=== PATIENT | female | born 1955 | race Caucasian/White ===

== ENCOUNTER 2023-05-17 11:30 | Emergency (ER) | payer MEDICARE, SELFPAY ==
[2023-05-17 11:34] VITALS: BP 175/103; PULSE 76; RESP 18; TEMP 36.7; O2SAT 98; BMI 31.1
--- NOTE | 2023-05-17 12:00 | ED.FEMALEGU1 ---
HPI - Female Genitourinary General Chief complaint: Urogenital-Female Stated complaint: BACK/PELVIC PAIN Time Seen by Provider: 05/17/23 11:32 Source: patient Mode of arrival: walk-in Limitations: no limitations History of Present Illness HPI Narrative: 67-year-old female presents to Emergency Department for chief complaint of a bulge coming out of her vagina. She believes it's her cervix. She has an appointment with a auto heater mechanic in three weeks. She's had a little bit of bleeding intermittently. No fever or vomiting. She's had this problem for about a month. Related Data Allergies Allergy/AdvReac Type Severity Reaction Status Date / Time amoxicillin [From Augmentin] Allergy Unknown Verified 05/17/23 11:34 beclomethasone Allergy Unknown Verified 05/17/23 11:34 [From Vancenase] clavulanic acid Allergy Unknown Verified 05/17/23 11:34 [From Augmentin] codeine Allergy Unknown Verified 05/17/23 11:34 Review of Systems ROS Narrative A ten point review of systems is negative except as noted above. Exam Narrative Exam Narrative: Nurses note and vital signs reviewed and patient is not hypoxic. General: The patient appears well and in no apparent distress. Patient is resting comfortably on cart. Skin: Warm, dry, no pallor noted. There is no rash noted. Head: Normocephalic, atraumatic Eye: Normal conjunctiva, no drainage Ears, Nose, Mouth, and Throat: oral mucosa is moist. Nares patent. Cardiovascular: Regular Rate and Rhythm Respiratory: Patient is in no distress, no accessory muscle use, lungs are clear to auscultation, no wheezing, rales or rhonchi Back: non-tender, no CVA tenderness bilaterally to percussion. GI: soft and nontender : The patient's cervix and uterus is external. It protrudes out approximately 4 inches. Musculoskeletal: The patient has no evidence of calf tenderness, no pitting edema, symmetrical pulses noted bilaterally Neurological: A&O, normal speech Psychiatric: Cooperative Constitutional Vital Signs, click to edit/add: Last Vital Signs Temp 98.1 F 05/17/23 11:34 Pulse 76 05/17/23 11:34 Resp 18 05/17/23 11:34 BP 175/103 H 05/17/23 11:34 Pulse Ox 98 05/17/23 11:34 O2 Del Method Room Air 05/17/23 11:34 Course Vital Signs Vital signs: Vital Signs Temperature 98.1 F 05/17/23 11:34 Pulse Rate 76 05/17/23 11:34 Respiratory Rate 18 05/17/23 11:34 Blood Pressure 175/103 H 05/17/23 11:34 Pulse Oximetry 98 05/17/23 11:34 Oxygen Delivery Method Room Air 05/17/23 11:34 Temperature 98.1 F 05/17/23 11:34 Pulse Rate 76 05/17/23 11:34 Respiratory Rate 18 05/17/23 11:34 Blood Pressure 175/103 H 05/17/23 11:34 Pulse Oximetry 98 05/17/23 11:34 Oxygen Delivery Method Room Air 05/17/23 11:34 MDM - Female Genitourinary MDM Narrative Medical decision making narrative: uterine prolapse is identified. I spoke to Dr. Vázquez and he will see her in two weeks. No evidence of urinary tract infection. Treatment diagnosis and follow-up were discussed with the patient. Differential Diagnosis Differential diagnosis: Likely urinary tract infection and other (uterine prolapse, bladder prolapse) Lab Data Attestation: I reviewed the patient's lab results. Labs: Lab Results 05/17/23 Range/Units 12:05 Urine Color Lt. yellow (YELLOW) Urine Clarity Clear (CLEAR) Urine pH 5.5 (5.0-9.0) Ur Specific [place] 1.010 (1.005-1.025) Urine Protein Negative (NEG/TRACE) mg/dL Urine Glucose (UA) Negative (NEGATIVE) mg/dL Urine Ketones Negative (NEGATIVE) mg/dL Urine Occult Blood Trace-i (NEGATIVE) Urine Nitrite Negative (NEGATIVE) Urine Bilirubin Negative (NEGATIVE) Urine Urobilinogen 0.2 (0.2-1.0) EU/dL Ur Leukocyte Esterase Trace A (NEGATIVE) Urine RBC 0-2 (0-2) #/HPF Urine WBC 0-2 A (NONE SEEN) #/HPF Ur Squamous Epith Cells Few A (NONE/RARE) #/LPF Urine Crystals None seen (None Seen) #/HPF Urine Bacteria Trace A (NONE SEEN) #/HPF Urine Casts None seen (NONE SEEN) #/LPF Urine Mucus None seen (NONE SEEN) Discharge Plan Discharge Chief Complaint: Urogenital-Female Clinical Impression: Uterine prolapse Patient Disposition: Home, Self-Care Time of Disposition Decision: 12:26 Condition: Good Mode of Transportation: Private Vehicle Instructions: Uterine Prolapse (ED) Additional Instructions: Call Dr. Vázquez's office. He will see you in two weeks. Stand Alone Forms: Portal Instructions Referrals: SYLVIA HOLLAND [Primary Care Provider] - 1 week
--- NOTE | 2023-05-17 12:09 | PC.NURSE ---
pt having uterine prolapse for last few days. has happened before but not as bad. c/o lower back and pelvic pain. some vaginal bleeding. is going to see Dr Vázquez on 06/07
[2023-05-17 12:11] LABS: Bilirubin Urine NEGATIVE (NEGATIVE); Blood Urine TRACE-I (NEGATIVE); Clarity Urine CLEAR (CLEAR); Color Urine LT. YELLOW (YELLOW); Glucose Urine UA NEGATIVE (NEGATIVE); Ketones Urine NEGATIVE (NEGATIVE); Leukocyte Esterase Urine TRACE (NEGATIVE); Nitrite Urine NEGATIVE (NEGATIVE); Protein Urine NEGATIVE (NEG/TRACE); Urobilinogen Urine 0.2 EU/dL (0.2-1.0); pH Urine 5.5 (5.0-9.0)
[2023-05-17 12:22] LABS: Bacteria Urine TRACE #/HPF (NONE SEEN); Crystals Seen? None Seen #/HPF (None Seen); Mucus Urine NONE SEEN (NONE SEEN); RBC Urine 0-2 #/HPF (0-2); Squamous Epithelial Cell Urine FEW #/LPF (NONE/RARE); WBC Urine 0-2 #/HPF (NONE SEEN)
[2023-05-17 12:23] LABS: Cast Seen? NONE SEEN #/LPF (NONE SEEN)
--- OUTSIDE RECORDS SUMMARY | 2023-06-27 14:09 | XMS_ITS | CCD ---
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 CODING DATE: 017 [facility] STATUS: Home (Routine DC) PAYOR: Self Pay APC DESCRIPTION 5671 Level 1 Pathology ADMIT DX: REASON FOR VISIT DX: N95.0 Postmenopausal bleeding FINAL DX: PRINCIPAL: N95.0 Postmenopausal bleeding SECONDARY: N93.9 Abnormal uterine and vaginal bleeding, unspecified PYMT PROC APC STAT DESCRIPTION DOCTOR NAME DATE NOTE: The code number assigned matches the documented diagnosis and / or procedure in the patient's chart. However, the narrative phrase printed from the coding software may appear abbreviated, or result in slightly different terminology. Coded By: Meera Peres Date Saved: 01/14/2017 08:25 am Normal [facility] Encounters Encounter Date Encounter Type Care Provider Facility Start: 05-24-2023 End: 05-24-2023 ambulatory JEFFRY FELIPE Not Available Payers Date Payer Category Payer Medicare [id number] 1955 Unknown [id number] Summary Purpose Family History No Family History Records FoundNo Family History Records Found Advance Directives No Advanced Directives Records FoundNo Advanced Directives Records Found Additional Source Comments INFORMATION SOURCE (unrecogn ized section and content) DATE CREATED AUTHOR 01/03/2018 [facility] DATE CREATED AUTHOR AUTHOR'S ORGANIZ ATION 05/26/2023 [facility] EPIC FOR RECORDS PERTAINING TO PATIENTS WHO ARE OR HAVE BEEN ENROLLED IN A CHEMICAL DEPENDENCY/SUBSTANCEABUSE PROGRAM, SOME INFORMATION MAY BE OMITTED. This clinical summary was aggregated from multiple sources. Caution should be exercised in using it in the provision of clinical care. This summary normalizes information from multiple sources, and as a consequence, information in this document may materially change the coding, format and clinical context of patient data. In addition, data may be omitted in some cases. CLINICAL DECISIONS SHOULD BE BASED ON THE PRIMARY CLINICAL RECORDS. [facility]. provides no warranty or guarantee of the accuracy or completeness of information in this document.
== END 2023-05-17 12:35 | disposition home or self-care (01) ==
PROVIDERS: Emergency Provider Emergency Medicine; PCP Family Medicine
DX: N81.4 Uterovaginal prolapse, unspecified (principal)
CPT/HCPCS: 81001; 99284